=== PATIENT | male | born 1975 ===

== ENCOUNTER 2023-11-22 12:50 | Emergency (ER) | payer OTHER, SELFPAY ==
--- NOTE | ~2023-11-22 | XR_ITS ---
EXAMINATION: XR FINGER, LEFT CLINICAL INFORMATION: Laceration COMPARISON: None available. TECHNIQUE: Three views of the left thumb. FINDINGS: The bones and soft tissues are normal. No fracture. Alignment is anatomic. Joint spaces are maintained. XR/XR finger LT min 2V IMPRESSION: No acute bony pathology
[2023-11-22 13:17] VITALS: BP 162/101; PULSE 75; RESP 16; TEMP 36.6; O2SAT 98; BMI 31.8
--- NOTE | 2023-11-22 13:18 | ED_ITS ---
HPI - Skin/Abscess/Foreign Bdy General Chief complaint: Wound/Laceration Stated complaint: Thumb lac work inj Time Seen by Provider: 11/22/23 15:04 Related Data Allergies Allergy/AdvReac Type Severity Reaction Status Date / Time No Known Allergies Allergy Verified 11/22/23 13:24 [facility] Social History Social History Advance Directives: No Do you have a plan to hurt others: No Plan Physical Exam Vital Signs: Vital Signs: Last Vital Signs Temp 97.9 F 11/22/23 13:17 Pulse 75 11/22/23 13:17 Resp 16 11/22/23 13:17 BP 162/101 H 11/22/23 13:17 Pulse Ox 98 11/22/23 13:17 O2 Del Method Room Air 11/22/23 13:17 BMI result Body Mass Index 31.8 Course Course Course Narrative: This is a Rapid Medical Examination (RME) performed by Jeancarlos aVca PA-C in triage. Full HPI, ROS, assessment and treatment plan per primary provider in the Main ED. 48-year-old right hand dominant male presents to the ED today with lack to left thumb after cutting his left thumb with a box sealing machine catcher while at work. 1.5 cm lac noted to MCP of left thumb. bleeding controlled in triage. FROM intake to digit. finger to thumb opposition intact. Plan: xrs, repair Reevaluation(s) Reevaluation #1: Patient left the ED without completing treatment. Discharge Plan Discharge Clinical Impression: Laceration Patient Disposition: Left W/O Completing Treatment
== END 2023-11-22 15:25 | disposition left against medical advice (07) ==
PROVIDERS: Emergency Provider Emergency Medicine
DX: S61.012A Laceration without foreign body of left thumb without damage to nail, initial encounter (principal); W27.8XXA Contact with other nonpowered hand tool, initial encounter; Y93.89 Activity, other specified; Y92.9 Unspecified place or not applicable; Y99.0 Civilian activity done for income or pay
CPT/HCPCS: 73140; 99281; 99283